=== PATIENT | male | born 1945 | race Caucasian/White ===

== ENCOUNTER 2022-05-12 08:38 | Emergency (ER) | payer OTHER ==
--- NOTE | 2022-05-12 09:28 | ED Physician Documentation ---
PD HPI NECK PAIN - Stated complaint Stated Complaint: NECK PX - Chief complaint Chief Complaint: Trauma Hd/Nk - History obtained from History obtained from: Patient - Additional information Additional information: Patient is a 76-year-old presenting for evaluation of neck pain that is been present for 2 weeks. He was doing a virtual physical therapy session on line and was using a foam roller that was parallel to his spine. He thought it Patient is a 76-year-old presenting for evaluation of neck pain that is been present for 2 weeks. He was doing a virtual physical therapy session on line and was using a foam roller that was parallel to his spine. He thought it was extended Far enough to support his head and neck but when he laid back he extended his neck back. He did not hear a snap or a pop. Since that time he has had some discomfort to his neck. He has tried ice and Advil without any significant improvement.It is worse in the morning after sleeping.He contacted his doctor through the [facility] who Encouraged him to come to the emergency department for evaluation as they do not have any available appointments soon and he would have to travel to [place] to be seen. He denies dizziness or lightheadedness. No headache. Review of Systems Constitutional: denies: Fever Cardiac: denies: Chest pain / pressure Respiratory: denies: Dyspnea, Cough GI: denies: Abdominal Pain, Vomiting : denies: Dysuria Musculoskeletal: reports: Neck pain. denies: Back pain Neurologic: denies: Headache PD PAST MEDICAL HISTORY - Present Medications Home Medications: Ambulatory Orders Medication Instructions Recorded Confirmed Lidocaine Patch 5% [Lidoderm Patch] 1 patch TOP DAILY PRN #10 patch 05/12/22 - Allergies Allergies/Adverse Reactions: Allergies Allergy/AdvReac Type Severity Reaction Status Date / Time iodine Allergy Unknown Verified 05/12/22 08:46 PD ED PE NORMAL - General General: Alert and oriented X 3, No acute distress, Well developed/nourished - HEENT HEENT: Atraumatic - Neck Neck: Supple, no meningeal sign. 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 There is no neck manipulation. His neuro exam is normal.He has no other associated symptoms to suggest a dissection. He does have a patch of erythema to the site. ?birthmark. Patient is unaware of Any skin discoloration To this area but I did take a picture with his own cell phone so that he could see it. Does not appear to be cellulitic. No vesicles to suggest herpes. CT scan was obtained which does not demonstrate fracture or dislocation. Based on his exam I believe ligamentous disruption is less likely. Patient counseled on continued supportive care as well as need for close follow- up with his primary care doctor. He is ambulatory at discharge. Declines trial of muscle relaxers. He is agreeable to trial of lidocaine patches. Departure - Departure Disposition: 01 Home, Self Care Clinical Impression: Neck strain Qualifiers: Encounter type: initial encounter Qualified Code(s): S16.1XXA - Strain of m uscle, fascia and tendon at neck level, initial encounter Condition: Stable Instructions: ED Sprain Strain Neck Prescriptions: Lidocaine Patch 5% [Lidoderm Patch] 1 patch TOP DAILY PRN #10 patch PRN Reason: pain Comments: The CT results of your neck are as follows. IMPRESSION: 1. Severe cervical spondylosis. 2. No evidence of acute cervical fracture or dislocation. 3. 1.6 cm left thyroid nodule incidentally noted. There is a nodule on your thyroid gland. I would recommend mentioning this to your primary care doctor as you may need further follow-up for it.I have sent a prescription for lidocaine patches to [facility] in [place]. Please continue to have close follow-up with your PCP if your symptoms or not improving. Discharge Date/Time: 05/12/22 10:00
--- NOTE | 2022-05-12 09:37 | CT Report ---
PROCEDURE: CERVICAL SPINE WO INDICATIONS: pain x 2 weeks TECHNIQUE: Noncontrast 3 mm thick sections acquired from the skull base to the T4 level. Sagittal and coronal r eformats were then constructed. For radiation dose reduction, the following was used: automated exp osure control, adjustment of mA and/or kV according to patient size. COMPARISON: None. FINDINGS: Image quality: Excellent. Bones: No fractures or dislocations. Visualized superior ribs are intact. Severe cervical spondyli tic change. Prominent multilevel bilateral facet arthropathy. Multilevel bony foraminal narrowing, se arnulfo at C3-C4 bilaterally and on the right at C4-C5 and bilaterally at C5-C6 and on the left at C6-C7 . Soft tissues: Prevertebral soft tissues are normal in thickness. No paravertebral hematomas. No ap ical pneumothoraces. 1.6 cm left thyroid nodule IMPRESSION: 1. Severe cervical spondylosis. 2. No evidence of acute cervical fracture or dislocation. 3. 1.6 cm left thyroid nodule incidentally noted. Reviewed by: Jason Wagner MD on 05/12/2022 9:46 AM PST Approved by: Jason Wagner MD on 05/12/2022 9:46 AM PST Station ID: [id number]
[2022-05-12] MEDS: LIDOCAINE PATCH 5% TOP STA (09:59)
[2022-05-12 10:02] VITALS: BP 138/90
== END 2022-05-12 10:00 | disposition home or self-care (01) ==
LOC: ED 08:38
DX: S16.1XXA Strain of muscle, fascia and tendon at neck level, initial encounter (principal); X58.XXXA Exposure to other specified factors, initial encounter; Y93.89 Activity, other specified; E04.1 Nontoxic single thyroid nodule; L53.9 Erythematous condition, unspecified
CPT/HCPCS: 72125; 99282; 99284; A9270